=== PATIENT | female | born 1990 | race American Indian/Alaskan Native ===

== ENCOUNTER 2016-08-12 12:53 | Emergency (ER) | payer MEDICAID ==
[2016-08-12 13:57] VITALS: BP 121/70
[2016-08-12] MEDS ORDERED: BENADRYL PO ONE (16:45)
[2016-08-12] MEDS ORDERED: PEPCID PO ONE (16:46)
[2016-08-12] MEDS ORDERED: DECADRON IM ONE (16:46)
--- NOTE | 2016-08-12 18:24 | Emergency Department Report ---
Entered by YVETTE LANE, acting as scribe for VASHTI AGUILERA PA. - General Chief complaint: Skin/Abscess/Foreign Body Stated complaint: POSS INSECT BITE Time Seen by Provider: 08/12/16 16:37 Source: patient Mode of arrival: Ambulatory Limitations: Physical Limitation - History of Present Illness Initial comments: 25 y/o female with no significant PMHx, presents to the ED complaining of pain and tenderness to the right thumb secondary to possible insect bite yesterday morning. The patient denies seeing a spider, but thinks that it may have been a spider bite as she was outside at the time. The pain is rated 7 out of 10 severity. Associated symptoms of itching and burning sensation to the right thumb, but she denies difficulty swallowing, SOB, chest pain, abdominal pain, nausea, vomiting, and fever. She denies acute trauma or injury to the affected area. Denies numbness, weakness, paresthesias. MD complaint: insect bite/sting (patient states she did not see a spider, but she believes she was bitten by a spider) -: days(s) (1 day, yesterday morning) Location: R hand (right thumb) Severity: moderate Severity scale (0 -10): 7 Quality: burning Consistency: constant Improves with: none, other (no alleviation of the symptoms with OTC benadryl) Worsens with: palpation, movement Context: other (possible insect bite, patient was outside when the symptoms began. Denies acute injury or trauma) Associated symptoms: itching, other (swelling, tenderness) Treatments Prior to Arrival: Benadryl - Related Data Previous Rx's Medication Instructions Recorded Last Taken Type Ibuprofen [Motrin] 600 mg PO Q8H PRN #15 tablet 04/15/16 Unknown Rx Allergies Allergy/AdvReac Type Severity Reaction Status Date / Time banana Allergy Hives Verified 04/15/16 13:30 latex Allergy Hives Verified 04/15/16 13:30 Abscess Boil HPI - HPI Chief Complaint: Skin/Abscess/Foreign Body Stated Complaint: POSS INSECT BITE Home Medications: Previous Rx's Medication Instructions Recorded Last Taken Type Ibuprofen [Motrin] 600 mg PO Q8H PRN #15 tablet 04/15/16 Unknown Rx Allergies/Adverse Reactions: Allergies Allergy/AdvReac Type Severity Reaction Status Date / Time banana Allergy Hives Verified 04/15/16 13:30 latex Allergy Hives Verified 04/15/16 13:30 ED Review of Systems Comment: All other systems reviewed and negative Constitutional: denies: fever ENT: denies: other (difficulty swallowing) Respiratory: denies: cough, shortness of breath, wheezing Cardiovascular: denies: chest pain, palpitations Endocrine: no symptoms reported Gastrointestinal: denies: abdominal pain, nausea, vomiting Musculoskeletal: other (right thumb pain and tenderness secondary to possible insect bite) Skin: other (swelling to the right thumb) Neurological: denies: headache, weakness, numbness, paresthesias ED Past Medical Hx - Past Medical History Previous Medical History?: Yes Hx Arthritis: Yes Hx Asthma: Yes - Surgical History Past Surgical History?: No - Social History Smoking Status: Never Smoker Substance Use Type: Non Opiate Pain - Medications Home Medications: Home Medications Medication Instructions Recorded Confirmed Last Taken Type Ibuprofen [Motrin] 600 mg PO Q8H PRN #15 tablet 04/15/16 Unknown Rx ED Physical Exam - General Limitations: Physical Limitation General appearance: alert, in no apparent distress - Head Head exam: Present: atraumatic, normocephalic - Eye Eye exam: Present: normal appearance - ENT ENT exam: Present: normal external ear exam - Neck Neck exam: Present: normal inspection, full ROM (supple) - Respiratory Respiratory exam: Present: normal lung sounds bilaterally (clear to auscultation throughout), wheezes. Absent: respiratory distress - Cardiovascular Cardiovascular Exam: Present: regular rate, normal rhythm, normal heart sounds. Absent: systolic murmur, diastolic murmur, rubs, gallop - GI/Abdominal GI/Abdominal exam: Present: soft, normal bowel sounds (bowel sounds are normative). Absent: tenderness, guarding, rebound, rigid - Extremities Exam Extremities exam: Present: full ROM (painful ROM of the right thumb), normal capillary refill, other (tenderness between the MCP and PIP joint of the right thumb, affected area is edematous and slightly erythematous, Point of insertion noted over the dorsal apsect of the proximal phalynx of the right thumb. distal pulses are intact. ) - Back Exam Back exam: Present: normal inspection, full ROM - Neurological Exam Neurological exam: Present: alert, oriented X3 - Psychiatric Psychiatric exam: Present: normal affect, normal mood - Skin Skin exam: Present: warm, dry, intact, other (right thumb edema and mild erythema, point of insertion noted over the dorsal aspect of the proximal phalynx of the right thumb) ED Course Vital Signs 08/12/16 13:43 Temperature 98.3 F Pulse Rate 84 Respiratory 16 Rate Blood Pressure 121/70 O2 Sat by Pulse 100 Oximetry - Reevaluation(s) Reevaluation #1: 08/12/16 18:21 Patient was given Decadron, Benadryl, Pepcid. At the time of reexamination, patient was not found in the room. ED Medical Decision Making - Lab Data Vital Signs 08/12/16 13:43 Temperature 98.3 F Pulse Rate 84 Respiratory 16 Rate Blood Pressure 121/70 O2 Sat by Pulse 100 Oximetry ED Disposition Clinical Impression: Insect bite Qualifiers: Encounter type: initial encounter Qualified Code(s): W57.XXXA - Bitten or stung by nonvenomous insect and other nonvenomous arthropods, initial encounter Disposition: ELOPED Is pt being admited?: No Condition: Stable Referrals: PRIMARY CARE, [Primary Care Provider] - 3-5 Days This documentation as recorded by the DOMINGO mancini GRACE,accurately reflects the service I personally performed and the decisions made by ,VASHTI AGUILERA PA.
== END 2016-08-12 18:29 | disposition left against medical advice (07) ==
LOC: ED 12:53
DX: S60.361A Insect bite (nonvenomous) of right thumb, initial encounter (principal); M19.90 Unspecified osteoarthritis, unspecified site; J45.909 Unspecified asthma, uncomplicated; Z91.018 Allergy to other foods; Z91.040 Latex allergy status; W57.XXXA Bitten or stung by nonvenomous insect and other nonvenomous arthropods, initial encounter; Y93.89 Activity, other specified; Y99.9 Unspecified external cause status; Y92.89 Other specified places as the place of occurrence of the external cause
CPT/HCPCS: 96372; 99282; J1100

== ENCOUNTER 2021-07-15 13:37 | Emergency (ER) | payer SELFPAY ==
[2021-07-15 14:23] VITALS: BP 143/80
[2021-07-15] MEDS ORDERED: TETANUS,DIPH,PERTUSS(ACELL) VACCINE 0.5 ML SYRINGE IM ONE (16:20)
[2021-07-15] MEDS ORDERED: LIDOCAINE (1%) 10 MG/1 ML VIAL 20 ML MDV INFILTRATI ONE (16:20)
--- NOTE | 2021-07-15 17:21 | Emergency Department Report ---
ED General Adult HPI - General Chief complaint: Extremity Injury, Upper Stated complaint: FINGER INJURY Time Seen by Provider: 07/15/21 14:52 Source: patient Mode of arrival: Ambulatory Limitations: No Limitations - History of Present Illness Initial comments: 30-year-old -[place] female patient presents with complaints of right little finger nail avulsion yesterday. 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 Patient is unsure of her last tetanus vaccine. She rates her pain as 9/10 in severity. No swelling or purulent drainage or redness to the finger per patient. Severity scale (0 -10): 8 - Related Data Previous Rx's Medication Instructions Recorded Last Taken Type Ibuprofen [Motrin] 600 mg PO Q8H PRN #15 tablet 04/15/16 Unknown Rx Acetaminophen/Codeine [Tylenol 1 tab PO Q8H PRN #8 tab 07/15/21 Unknown Rx /Codeine # 3 tab] Ibuprofen [Motrin 800 MG tab] 800 mg PO Q8HR PRN #20 tablet 07/15/21 Unknown Rx Mupirocin [Bactroban 2% OINT] 1 applic TP TID 7 Days #1 tube 07/15/21 Unknown Rx cephALEXin [Keflex] 500 mg PO Q12HR 7 Days #14 cap 07/15/21 Unknown Rx Allergies Allergy/AdvReac Type Severity Reaction Status Date / Time banana Allergy Hives Verified 07/15/21 14:16 latex Allergy Hives Verified 07/15/21 14:16 ED Review of Systems ROS: Stated complaint: FINGER INJURY Other details as noted in HPI Constitutional: denies: chills, diaphoresis, fever, malaise, weakness Musculoskeletal: denies: arthralgia Skin: denies: change in color Neurological: denies: numbness, paresthesias ED Past Medical Hx - Past Medical History Hx Arthritis: Yes Hx Asthma: Yes - Social History Smoking Status: Never Smoker Substance Use Type: Non Opiate Pain - Medications Home Medications: Home Medications Medication Instructions Recorded Confirmed Last Taken Type Ibuprofen [Motrin] 600 mg PO Q8H PRN #15 tablet 04/15/16 Unknown Rx Acetaminophen/Codeine [Tylenol 1 tab PO Q8H PRN #8 tab 07/15/21 Unknown Rx /Codeine # 3 tab] Ibuprofen [Motrin 800 MG tab] 800 mg PO Q8HR PRN #20 tablet 07/15/21 Unknown Rx Mupirocin [Bactroban 2% OINT] 1 applic TP TID 7 Days #1 tube 07/15/21 Unknown Rx cephALEXin [Keflex] 500 mg PO Q12HR 7 Days #14 cap 07/15/21 Unknown Rx ED Physical Exam - General Limitations: No Limitations General appearance: alert, in no apparent distress - Head Head exam: Present: atraumatic, normocephalic - Eye Eye exam: Present: normal appearance - Neurological Exam Neurological exam: Present: alert, oriented X3 - Psychiatric Psychiatric exam: Present: normal affect, normal mood - Skin Skin exam: Present: warm, dry, intact, normal color, other (Partial nail avulsion noted to right little finger; no active bleeding noted; no swelling or erythema or purulent drainage noted; no bony tenderness noted; patient has full range of motion of the little finger and normal perfusion and sensation). Absent: rash ED Course Vital Signs 07/15/21 14:17 Temperature 98.4 F Pulse Rate 72 Respiratory 18 Rate Blood Pressure 143/80 [Right] O2 Sat by Pulse 98 Oximetry ED Medical Decision Making - Medical Decision Making 30-year-old -[place] female patient presents with complaints of right little finger nail avulsion yesterday. 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 Patient is unsure of her last tetanus vaccine. She rates her pain as 9/10 in severity. No swelling or purulent drainage or redness to the finger per patient. Remaining portion of nail was cut down to the cuticle. Patient tolerated procedure well without any immediate complications. Tetanus vaccine updated. She has normal perfusion post procedure. Will cover patient with antibiotics. Recommend she follows up with PCP in 5 days. Discussed wound care and signs and symptoms that should prompt immediate return to ED with patient who verbalizes understanding Critical care attestation.: If time is entered above; I have spent that time in minutes in the direct care of this critically ill patient, excluding procedure time. ED Disposition Clinical Impression: Nail avulsion, finger Disposition: 01 HOME / SELF CARE / HOMELESS Is pt being admited?: No Condition: Stable Instructions: Fingernail or Toenail Removal, Adult, Care After, Wound Care, Adult Prescriptions: Mupirocin [Bactroban 2% OINT] 1 applic TP TID 7 Days #1 tube cephALEXin [Keflex] 500 mg PO Q12HR 7 Days #14 cap Ibuprofen [Motrin 800 MG tab] 800 mg PO Q8HR PRN #20 tablet PRN Reason: Pain, Moderate (4-6) Acetaminophen/Codeine [Tylenol /Codeine # 3 tab] 1 tab PO Q8H PRN #8 tab PRN Reason: Pain , Severe (7-10) Referrals: PRIMARY CARE, [Primary Care Provider] - 3-5 Days [facility] [Provider Group] - 3-5 Days Forms: Work/School Release Form(ED)
== END 2021-07-15 17:58 | disposition home or self-care (01) ==
LOC: ED 13:37
DX: S61.306A Unspecified open wound of right little finger with damage to nail, initial encounter (principal); M19.90 Unspecified osteoarthritis, unspecified site; J45.909 Unspecified asthma, uncomplicated; W32.0XXA Accidental handgun discharge, initial encounter; Y93.89 Activity, other specified; Y92.89 Other specified places as the place of occurrence of the external cause; Y99.8 Other external cause status
CPT/HCPCS: 11730; 90471; 90715; 99282; J3490